=== PATIENT | female | born 1980 | race Asian ===

== ENCOUNTER 2019-02-09 21:22 | Inpatient (IN) | payer SELFPAY ==
[~2019-02-09] VITALS: Ht 162.6 cm; Wt 92.0 kg
[2019-02-09 22:59] LABS: MEAN CORPUSCULAR HEMOGLOBIN 29.4 pg (27.0-34.8); MEAN CORPUSCULAR HGB CONC 33.3 g/dL (32.4-35.8); MEAN CORPUSCULAR VOLUME 88.5 fL (80-100); MEAN PLATELET VOLUME 8.9 fL (7.4-10.4); PLATELET COUNT 318 x10^3/uL (130-400); RED BLOOD COUNT 4.84 x10^6/uL (3.82-5.3)
[2019-02-09] MEDS ORDERED: PLEASE ENTER ALLERGIES MC SCH (23:00)
[2019-02-09] MEDS ORDERED: MORPHINE SULFATE 4 MG/ML, 1ML IVPush PRN (23:00)
[2019-02-09] MEDS ORDERED: FAMOTIDINE 20 MG/2 ML IVP ONE (23:00)
[2019-02-09] MEDS ORDERED: ONDANSETRON 2MG/ML, 2ML IVPush ONE (23:00)
[2019-02-09] MEDS ORDERED: ONDANSETRON 2MG/ML, 2ML ONE (23:03)
[2019-02-09] MEDS ORDERED: MORPHINE SULFATE 4 MG/ML, 1ML ONE (23:03)
[2019-02-09] MEDS ORDERED: FAMOTIDINE 20 MG/2 ML ONE (23:04)
[2019-02-09 23:10] LABS: ALBUMIN 3.6 g/dL (3.4-5.0); ANION GAP 10 mmol/L (5-15); CHLORIDE 105 mmol/L (98-107)
[2019-02-09 23:16] LABS: BASOPHILS # (AUTO) 0.01 x10^3/uL (0-0.1); BASOPHILS % (AUTO) 0 % (0-1); EOSINOPHILS # (AUTO) 0.04 x10^3/uL (0-0.4); EOSINOPHILS % (AUTO) 0 % (1-7); LYMPHOCYTES # (AUTO) 1.82 x10^3/uL (1-3.4); LYMPHOCYTES % (AUTO) 9 % (22-44); MD SCAN; MONOCYTES # (AUTO) 0.33 x10^3/uL (0.2-0.8); MONOCYTES % (AUTO) 2 % (2-9); NEUTROPHILS # (AUTO) 17.24 x10^3/uL (1.8-6.8); NEUTROPHILS % (AUTO) 89 % (42-75)
[2019-02-09 23:17] LABS: ALANINE AMINOTRANSFERASE 24 U/L (12-78); ALKALINE PHOSPHATASE 55 U/L (45-117); BILIRUBIN,TOTAL 0.7 mg/dL (0.2-1.0); CREATININE 0.88 mg/dL (0.55-1.02); TOTAL PROTEIN 9.3 g/dL (6.4-8.2); TROPONIN I < 0.015 ng/mL (0.000-0.045)
[2019-02-09] MEDS ORDERED: VANCOMYCIN PER PHARMACY MC PRN (23:30)
[2019-02-09] MEDS ORDERED: CEFTRIAXONE PMX 1GM/50ML 50 ML IV ONE (23:30)
[2019-02-09] MEDS ORDERED: VANCOMYCIN 1,800 MG in SODIUM CHLORIDE 0.9% 250 ML IV ONE (23:30)
[2019-02-09] MEDS ORDERED: CEFTRIAXONE PMX 1GM/50ML 50 ML ONE (23:35)
--- NOTE | 2019-02-09 23:40 | NUR ---
patient will have blood cultures drawn; awaiting draw for iv antibiotic started
--- NOTE | 2019-02-10 00:13 | NUR ---
BLOOD CULTURES DRAWN, ANTIBIOTICS STARTED. PATIENT VERBALIZED UNDERSTANDING OF EDUCATION REGARDING ANTIBIOTIC REACTIONS. NO NOTED ACUTE DISTRESS. VITAL SIGNS STABLE.
[2019-02-10] MEDS ORDERED: SODIUM CHLORIDE 0.9% 1,000ML IVBOLUS ONE (00:30)
[2019-02-10 01:29] VITALS: BP 117/79
[2019-02-10] MEDS ORDERED: HYDROcodone/APAP 5/325 TABLET PO PRN (01:30)
[2019-02-10] MEDS ORDERED: ACETAMINOPHEN 325 MG TABLET PO PRN (01:30)
[2019-02-10] MEDS ORDERED: ONDANSETRON ODT 4 MG PO PRN (01:30)
[2019-02-10] MEDS: SODIUM CHLORIDE 0.9% 1,000 ML IV SCH ×2 (04:11→11:11)
[2019-02-10 05:51] LABS: FREE T4 (FREE THYROXINE) 1.22 ng/dL (0.76-1.46); TROPONIN I < 0.015 ng/mL (0.000-0.045)
[2019-02-10 06:50] VITALS: BP 122/81
[2019-02-10] MEDS: CLINDAMYCIN PMX 600MG/50ML 50 ML IV SCH ×3 (07:43→23:47)
[2019-02-10] MEDS ORDERED: ONDANSETRON 2MG/ML, 2ML IVPush PRN (08:00)
[2019-02-10] MEDS ORDERED: OMNIPAQUE 350 MG/ML, 100ML BOTTLE ONE (11:44)
[2019-02-10 12:43] VITALS: BP 112/77
[2019-02-10] MEDS ORDERED: ALUMINUM/MAG/SIMETHICONE 30 ML UDC PO PRN (16:30)
[2019-02-10 18:59] LABS: MICROSCOPIC INDICATED
[2019-02-10 19:33] LABS: CULTURE INDICATED? NO
[2019-02-10 19:53] VITALS: BP 109/76
[2019-02-10] MEDS: ENOXAPARIN 40 MG/0.4 ML SQ SCH (21:00)
[2019-02-10] MEDS: FAMOTIDINE 20 MG TABLET PO SCH (21:00)
[2019-02-11] MEDS ORDERED: SODIUM CHLORIDE 0.9% 1,000 ML IV SCH (01:01)
[2019-02-11 02:06] VITALS: BP 112/78
[2019-02-11 05:23] LABS: BASOPHILS # (AUTO) 0.06 x10^3/uL (0-0.1); BASOPHILS % (AUTO) 0 % (0-1); EOSINOPHILS # (AUTO) 0.33 x10^3/uL (0-0.4); EOSINOPHILS % (AUTO) 2 % (1-7); LYMPHOCYTES # (AUTO) 2.08 x10^3/uL (1-3.4); LYMPHOCYTES % (AUTO) 13 % (22-44); MD NO; MEAN CORPUSCULAR HEMOGLOBIN 28.7 pg (27.0-34.8); MEAN CORPUSCULAR HGB CONC 32.6 g/dL (32.4-35.8); MEAN CORPUSCULAR VOLUME 88.1 fL (80-100); MEAN PLATELET VOLUME 9.1 fL (7.4-10.4); MONOCYTES # (AUTO) 0.79 x10^3/uL (0.2-0.8); MONOCYTES % (AUTO) 5 % (2-9); NEUTROPHILS # (AUTO) 12.42 x10^3/uL (1.8-6.8); NEUTROPHILS % (AUTO) 79 % (42-75); PLATELET COUNT 269 x10^3/uL (130-400); RED BLOOD COUNT 4.33 x10^6/uL (3.82-5.3); RED CELL DISTRIBUTION WIDTH 14.1 % (9.6-15.2)
[2019-02-11 05:29] LABS: HCT (SEDRATE) 38.3 % (34.6-47.8)
[2019-02-11 05:33] LABS: ALANINE AMINOTRANSFERASE 38 U/L (12-78); ALBUMIN 2.8 g/dL (3.4-5.0); ANION GAP 8 mmol/L (5-15); CALCIUM 8.4 mg/dL (8.5-10.1); CHLORIDE 111 mmol/L (98-107); CREATININE 1.82 mg/dL (0.55-1.02)
[2019-02-11 05:36] LABS: ALKALINE PHOSPHATASE 63 U/L (45-117); BILIRUBIN,TOTAL 0.4 mg/dL (0.2-1.0); TOTAL PROTEIN 7.7 g/dL (6.4-8.2)
[2019-02-11] MEDS: CLINDAMYCIN PMX 600MG/50ML 50 ML IV SCH ×2 (07:46→16:12)
[2019-02-11 07:52] VITALS: BP 130/79
[2019-02-11] MEDS: SODIUM CHLORIDE 0.9% 1,000 ML IV SCH ×3 (13:21→21:49)
[2019-02-11 15:17] VITALS: BP 121/60
[2019-02-11 20:46] VITALS: BP 118/85
[2019-02-11] MEDS: FAMOTIDINE 20 MG TABLET PO SCH (21:49)
[2019-02-11] MEDS: ENOXAPARIN 40 MG/0.4 ML SQ SCH (21:49)
[2019-02-12] MEDS: CLINDAMYCIN PMX 600MG/50ML 50 ML IV SCH ×2 (00:38→08:16)
[2019-02-12 02:09] VITALS: BP 115/79
[2019-02-12] MEDS: SODIUM CHLORIDE 0.9% 1,000 ML IV SCH (05:21)
[2019-02-12 06:03] LABS: HCT (SEDRATE) 35.8 % (34.6-47.8)
[2019-02-12 06:17] LABS: BASOPHILS # (AUTO) 0.04 x10^3/uL (0-0.1); BASOPHILS % (AUTO) 0 % (0-1); EOSINOPHILS # (AUTO) 0.45 x10^3/uL (0-0.4); EOSINOPHILS % (AUTO) 5 % (1-7); LYMPHOCYTES # (AUTO) 1.97 x10^3/uL (1-3.4); LYMPHOCYTES % (AUTO) 19 % (22-44); MD NO; MEAN CORPUSCULAR HEMOGLOBIN 28.7 pg (27.0-34.8); MEAN CORPUSCULAR HGB CONC 32.5 g/dL (32.4-35.8); MEAN CORPUSCULAR VOLUME 88.3 fL (80-100); MEAN PLATELET VOLUME 9.3 fL (7.4-10.4); MONOCYTES # (AUTO) 0.61 x10^3/uL (0.2-0.8); MONOCYTES % (AUTO) 6 % (2-9); NEUTROPHILS # (AUTO) 7.13 x10^3/uL (1.8-6.8); NEUTROPHILS % (AUTO) 70 % (42-75); PLATELET COUNT 266 x10^3/uL (130-400); RED BLOOD COUNT 4.09 x10^6/uL (3.82-5.3); RED CELL DISTRIBUTION WIDTH 13.8 % (9.6-15.2)
[2019-02-12 06:19] LABS: CHLORIDE 112 mmol/L (98-107)
[2019-02-12 06:54] LABS: ANION GAP 11 mmol/L (5-15); CALCIUM 8.9 mg/dL (8.5-10.1); CREATININE 1.04 mg/dL (0.55-1.02)
[2019-02-12 07:36] VITALS: BP 130/80
[2019-02-12] MEDS ORDERED: POTASSIUM CHLORIDE 20 MEQ TAB.ER.PRT PO SCH (08:00)
[2019-02-12 09:22] LABS: HEMOGLOBIN A1C 5.6 % (4.2-6.3)
[2019-02-12] MEDS ORDERED: AMOX1TAB64 PO (09:39)
[2019-02-12] MEDS ORDERED: ACID1TAB3 PO (09:39)
[2019-02-12] MEDS ORDERED: DOXY100C15 PO (09:39)
[2019-02-12] MEDS ORDERED: POTA20TA6 PO (09:41)
[2019-02-12 11:21] VITALS: BP 118/73
== END 2019-02-12 12:30 | disposition home or self-care (01) | DRG 872 ==
LOC: ED 02-10 00:40 → EDIP 02-10 01:05 → 4NOR 02-10 01:15
PROVIDERS: ADMIT Internal Medicine; ATTEND Internal Medicine
DX: A41.9 Sepsis, unspecified organism (principal); N17.9 Acute kidney failure, unspecified; L03.115 Cellulitis of right lower limb; L03.116 Cellulitis of left lower limb; K21.9 Gastro-esophageal reflux disease without esophagitis; E87.6 Hypokalemia; Z79.899 Other long term (current) drug therapy
CPT/HCPCS: 36415; J3490; 71045; 71275; 80048; 80053; 81001; 83036; 83605; 83690; 84439; 84443; 84484; 84703; 85025; 85379; 85651; 86140; 87040; 93005; 93306; 93970; 96374; 96375; G0378; J0696; J1650; J2405; J3370; Q0162; Q9967; J2270; J7030; J7050